=== PATIENT | male | born 1955 | race Caucasian/White ===

== ENCOUNTER 2016-05-05 13:48 | Inpatient (IN) | payer OTHER ==
[~2016-05-05] VITALS: Ht 165.1 cm; Wt 78.9 kg
[2016-05-05] MEDS ORDERED: ONDANSETRON (ODT) 4 MG TAB ODT STA (17:44)
--- NOTE | 2016-05-05 17:47 | ERD ---
ER Documentation Chief Complaint Date/Time DATE: 05/05/16 TIME: 17:45 Chief Complaint ap with vomiting and diarrhea since sunday HPI Pleasant 61-year-old male. Family member interpreting. The patient presents with epigastric and periumbilical abdominal pain, nausea vomiting and diarrhea. Approximately 5-6 days of symptoms. He denies any recent travel, sick contacts, antibiotics. No fevers or chills, no bloody diarrhea. Symptoms are moderate currently. No significant pain currently. ROS All systems reviewed and are negative except as per history of present illness. Medications Home Meds Reported Medications Insulin Glargine* (Lantus*) 100 Unit/Ml Soln, 15 UNIT SC QHS, #1 VIAL 05/05/16 Insulin Lispro (Humalog Kwikpen U-100) 100 Unit/1 Ml Insuln.pen, 7 UNIT SQ TID 05/05/16 Atorvastatin Calcium* (Atorvastatin Calcium*) 20 Mg Tablet, 20 MG PO QHS, #30 TAB 05/05/16 Hydrochlorothiazide* (Hydrochlorothiazide*) 25 Mg Tab, 25 MG PO DAILY, #30 TAB 05/05/16 Lisinopril* (Lisinopril*) 20 Mg Tablet, 20 MG PO DAILY, #30 TAB 05/05/16 Allergies Allergies: Coded Allergies: No Known Allergy (Unverified , 05/05/16) FmHx Family History: diabetes Physical Exam Vitals Vital Signs Date Time Temp Pulse Resp B/P Pulse Ox O2 Delivery O2 Flow Rate FiO2 05/05/16 13:52 98.1 96 20 100/56 99 Physical Exam General: Well developed, well nourished, no acute distress Head: Normocephalic, atraumatic. Eyes: Pupils equally reactive, EOM intact ENT: Moist mucous membranes Neck: Supple, no lymphadenopathy Respiratory: Lungs clear bilaterally, no distress Cardiovascular: RRR, no murmurs, rubs, or gallops Abdominal: Soft,. Billable tenderness without rebound or guarding, no localization of the right or left lower quadrants : Deferred MSK: No edema, no unilateral swelling, 5/5 strength Neurologic: Alert and oriented, moving all extremities, normal speech, no focal weakness, no cerebellar signs Skin: No rash Psych: Normal mood Result Diagram: 05/05/16 1755 05/05/16 1755 Results 24 hrs Laboratory Tests Test 05/05/16 17:55 05/05/16 18:57 Alanine Aminotransferase (ALT/SGPT) 49IU/L Albumin 4.7g/dl Albumin/Globulin Ratio 1.30 Alkaline Phosphatase 164IU/L Anion Gap 30 Aspartate Amino Transf (AST/SGOT) 56IU/L Basophils # 0.010^3/ul Basophils % 0.2% Blood Urea Nitrogen 13mg/dl Calcium Level 10.3mg/dl Carbon Dioxide Level 21mmol/L Chloride Level 86mmol/L Creatinine 0.84mg/dl Direct Bilirubin 0.00mg/dl Eosinophils # 0.010^3/ul Eosinophils % 0.3% Globulin 3.60g/dl Glucose Level 565mg/dl Hematocrit 39.8% Hemoglobin 13.9g/dl Indirect Bilirubin 0.6mg/dl Lipase 2502U/L Lymphocytes # 1.010^3/ul Lymphocytes % 15.3% Mean Corpuscular Hemoglobin 35.0pg Mean Corpuscular Hemoglobin Concent 34.9g/dl Mean Corpuscular Volume 100.3fl Mean Platelet Volume 8.2fl Monocytes # 0.910^3/ul Monocytes % 13.7% Neutrophils # 4.810^3/ul Neutrophils % 70.5% Nucleated Red Blood Cells # 0.010^3/ul Nucleated Red Blood Cells % 0.0/100WBC Platelet Count 94289^3/UL Potassium Level 3.8mmol/L Red Blood Count 3.9710^6/ul Red Cell Distribution Width 12.4% Sodium Level 133mmol/L Total Bilirubin 0.6mg/dl Total Protein 8.3g/dl White Blood Count 6.810^3/ul Bennie Test N/A Arterial Blood Date Drawn 05/05/2016 7:22:33 PM Arterial Blood Gas Puncture Site VENOUS LINE Blood Gas A-a O2 Differential 78.3mmHg Blood Gas Modality ROOM AIR Blood Gas Notified Time 05/05/2016 7:28:26 PM Blood Gas Notified Whom BR Blood Gas Specimen Source Blood venous Blood Gas Temperature 37.0C Carboxyhemoglobin 0.8% FiO2 21.0% Venous Blood Base Excess -4.2mmol/L Venous Blood HCO3 21.5mmol/L Venous Blood Methemoglobin 0.1% Venous Blood Oxygen Saturation 38.2mmHG Venous Blood Oxyhemoglobin 37.9% Venous Blood Total Hemoglobin 14.6g/dl Venous Blood pCO2 (Temp Corrected) 41.5mmHG Venous Blood pH 7.332 Venous Blood pO2 (Temp Corrected) 21.7mmHG Current Medications Medications (Trade) Dose Ordered Sig/Leela Route PRN Reason Start Time Stop Time Status Last Admin Dose Admin Ondansetron HCl (Zofran Odt) 4 mg ONCE STAT ODT 05/05/16 17:44 05/05/16 17:45 DC 05/05/16 18:06 Morphine Sulfate (morphine) 4 mg ONCE STAT IV 05/05/16 19:21 05/05/16 19:22 DC 05/05/16 19:51 Ondansetron HCl (Zofran Inj) 4 mg ONCE STAT IV 05/05/16 19:21 05/05/16 19:22 DC 05/05/16 19:58 Ondansetron HCl (Zofran Inj) 4 mg BRIDGE ORDER PRN IV NAUSEA AND/OR VOMITING 05/05/16 20:00 05/06/16 19:59 Acetaminophen (Tylenol Tab) 650 mg ER BRIDGE PRN PO MILD PAIN/FEVER 05/05/16 20:00 05/06/16 19:59 Insulin Human Lispro (Humalog) 7 unit ONCE STAT SC 05/05/16 19:32 05/05/16 19:34 DC 05/05/16 19:53 Procedures/MDM EKG, MONITORS, & DIAGNOSTIC IMAGING: CT imaging of the abdomen and pelvis IMPRESSION: 1. Minimal peripancreatic inflammation/edema is seen, suspicious for mild acute pancreatitis - correlate with serum enzymes. 2. Severe hepatic steatosis is noted. 3. Coronary arterial and aortoiliac atherosclerotic calcifications are present. 4. Colonic diverticulosis is seen without evidence for diverticulitis. 5. No mass or lymphadenopathy is identified. RPTAT: PP Gallbladder ultrasound IMPRESSION: No cholelithiasis. No sonographic evidence of acute cholecystitis. Hepatomegaly and hepatic steatosis. RPTAT: AA LAB INTERPRETATION: Hyperglycemia, borderline anion gap but normal pH on venous blood gas, elevated lipase consistent with acute pancreatitis MEDICAL DECISION MAKING: The symptoms are most consistent with likely viral process. The patient is a benign abdominal exam other than mild tenderness. Given his age however and persistence of symptoms I do believe CT imaging would be appropriate to rule out acute intra-abdominal process such as colitis, diverticulitis or bowel obstruction. The patient has no evidence of hemorrhagic E. coli or traveler's diarrhea. Antibiotics are likely unnecessary. The patient does appear to be well-hydrated. Oral Zofran will be provided. Or hydration will be given. No indication for IV hydration at this time. ER COURSE: The patient's laboratory testing shows evidence of acute pancreatitis of unclear etiology. The liver function tests showed no evidence of hepatobiliary obstruction. CT imaging and gallbladder ultrasound imaging shows no evidence of cholelithiasis. Consider possible pancreatic mass versus choledocholithiasis. MRCP may be necessary. The patient's pain is well controlled. The patient has hyperglycemia with borderline anion gap. No evidence of elena diabetic ketoacidosis. Patient states compliance with medications. The patient was given 7 units of subcutaneous Humalog. No indication for insulin drip. The patient is stable for medical surgical floor. I kept the patient and/or family informed of laboratory and diagnostic imaging results throughout the emergency room course. DISPOSITION PLAN: Medical surgical admission for management of acute pancreatitis CONSULTATION: Accepting care team and consultations: I discussed the current laboratory data, diagnostic imaging and emergency care provided. Admitting team: Dr. Jean Admitting team indication: Insurance directed Departure Diagnosis: Primary Impression: Abdominal pain Abdominal location: generalized Qualified Code: R10.84 - Generalized abdominal pain Additional Impressions: Nausea and vomiting Vomiting type: unspecified Vomiting Intractability: non-intractable Qualified Code: R11.2 - Non-intractable vomiting with nausea, unspecified vomiting type Acute pancreatitis Pancreatitis type: unspecified pancreatitis type Acute pancreatitis complication: unspecified Qualified Code: K85.90 - Acute pancreatitis, unspecified complication status, unspecified pancreatitis type Hyperglycemia Condition: IRINEO Moralez MD May 05, 2016 17:47
[2016-05-05 18:19] LABS: BASOPHILS % 0.2 % (0.0-2.0); EOSINOPHILS % 0.3 % (0.0-7.0); HEMATOCRIT 39.8 % (42.0-52.0); HEMOGLOBIN 13.9 g/dl (14.0-18.0); LYMPHOCYTES % 15.3 % (15.0-51.0); MEAN CORPUSCULAR HGB CONC 34.9 g/dl (32.0-37.0); MEAN CORPUSCULAR VOLUME 100.3 fl (82.0-101.0); MEAN PLATELET VOLUME 8.2 fl (7.4-10.4); MONOCYTE # 0.9 10^3/ul (0.3-0.9); MONOCYTES % 13.7 % (0.0-11.0); NEUTROPHIL # 4.8 10^3/ul (1.6-7.5); NEUTROPHILS % 70.5 % (39.0-77.0); PLATELET COUNT 167 10^3/UL (140-440); RED BLOOD COUNT 3.97 10^6/ul (4.70-6.10); RED CELL DISTRIBUTION WIDTH 12.4 % (11.5-14.5); UNCORRECTED WBC 6.8 10^3/ul (4.8-10.8); WHITE BLOOD COUNT 6.8 10^3/ul (4.8-10.8)
[2016-05-05 18:32] LABS: ALBUMIN 4.7 g/dl (3.3-4.9); POTASSIUM 3.8 mmol/L (3.5-5.1)
[2016-05-05 18:34] LABS: CREATININE 0.84 mg/dl (0.61-1.24)
[2016-05-05 18:35] LABS: ALBUMIN/GLOBULIN RATIO 1.3; BILIRUBIN,INDIRECT 0.6 mg/dl (0-1.1); BILIRUBIN,TOTAL 0.6 mg/dl (0.2-1.3); CALCIUM 10.3 mg/dl (8.4-10.2); TOTAL PROTEIN 8.3 g/dl (6.1-8.1)
[2016-05-05] MEDS ORDERED: HYD25 PO (18:42)
[2016-05-05] MEDS ORDERED: LISI20TA11 PO (18:42)
[2016-05-05] MEDS ORDERED: ATOR20TA38 PO (18:43)
[2016-05-05] MEDS ORDERED: INSU100I12 SQ (18:44)
[2016-05-05] MEDS ORDERED: LANT3I SC (18:45)
[2016-05-05 19:00] LABS: CONDITION 1
--- NOTE | 2016-05-05 19:09 | RADRPT ---
PROCEDURE: CT Abdomen and Pelvis without contrast. CLINICAL INDICATION: Mid abdominal pain, diarrhea TECHNIQUE: CT of the abdomen and pelvis was performed on a multi-detector scanner without IV contr ast. Coronal and sagittal images were reformatted from the axial data set. One or more of the foll owing dose reduction techniques were used: automated exposure control, adjustment of the mA and/or kV according to patient size, use of iterative reconstruction technique. CTDI = 9.2 mGy. DLP = 507. 92 mGy-cm. COMPARISON: None. FINDINGS: CT abdomen: The lung bases are clear. The heart size is normal, without pericardial effusion. Coronary arteria l calcifications are noted. The liver is fatty infiltrated, without evidence of focal mass. Gallbl adder and biliary tree are unremarkable. Minimal peripancreatic inflammation/edema is seen, suggest clair of mild acute pancreatitis. Spleen, adrenal glands and kidneys are unremarkable except for estefanía gn renal cysts. No urolithiasis or obstructive uropathy is identified. The stomach is grossly unre markable. The aorta is of normal caliber. Aortic vascular calcifications are present. There is no retroperit horton lymphadenopathy. The fifi hepatis region is clear. CT pelvis: No bowel obstruction, free intraperitoneal air or abscess is identified. Colonic diverticulosis is seen without diverticulitis. There is no appendicitis or colitis. Urinary bladder is grossly unrem arkable. No pelvic mass, free fluid or lymphadenopathy is identified. The surrounding osseous structures are remarkable for degenerative spondylosis of the spine. No ost eolytic or osteoblastic lesion is detected. IMPRESSION: 1. Minimal peripancreatic inflammation/edema is seen, suspicious for mild acute pancreatitis - demario elate with serum enzymes. 2. Severe hepatic steatosis is noted. 3. Coronary arterial and aortoiliac atherosclerotic calcifications are present. 4. Colonic diverticulosis is seen without evidence for diverticulitis. 5. No mass or lymphadenopathy is identified. RPTAT: PP .Paresh Pedraza MD, Date Time Electronically viewed and signed by .Paresh Pedraza MD, MD on 05/05/2016 19:09 .R/
[2016-05-05] MEDS ORDERED: ONDANSETRON 4 MG INJ IV STA (19:21)
[2016-05-05] MEDS ORDERED: morphine 4 MG/ML VIAL IV STA (19:21)
[2016-05-05 19:28] LABS: MODE ROOM AIR; MetHgb Venous 0.1 %; Sample Type Blood venous; Venous COHb 0.8 %; Venous Fraction OxyHgb 37.9 %; Venous Total Hemglobin 14.6 g/dl
[2016-05-05] MEDS ORDERED: INSULIN LISPRO 100 UNIT/ML VIAL SC STA (19:32)
--- NOTE | 2016-05-05 19:54 | RADRPT ---
PROCEDURE: US Abdomen (right upper quadrant). CLINICAL INDICATION: Abdominal pain TECHNIQUE: Multiple real-time longitudinal and transverse images of the right upper quadrant of th e abdomen were acquired utilizing a curved array transducer. Images were reviewed on a high-resoluti on PACS workstation. COMPARISON: None FINDINGS: The liver appears echogenic and measures 18 cm in length. No cholelithiasis. The gallbladder wall m easures 1 mm. The common bile duct measures 4 mm. No pericholecystic fluid is seen. No reported son ographic Bates sign. IMPRESSION: No cholelithiasis. No sonographic evidence of acute cholecystitis. Hepatomegaly and hepatic steatosis. RPTAT: AA .Jacky Everett MD, Date Time Electronically viewed and signed by .Jacky Everett MD, MD on 05/05/2016 19:54 .T/
[2016-05-05] MEDS ORDERED: ONDANSETRON 4 MG INJ IV PRN ×2 (20:00)
[2016-05-05] MEDS ORDERED: morphine 2 MG INJ IV PRN (20:00)
[2016-05-05] MEDS ORDERED: ACETAMINOPHEN 325 MG TAB PO PRN ×2 (20:00)
[2016-05-05] MEDS ORDERED: NACL 0.9% 3 ML SYG IV SCH (20:00)
--- NOTE | 2016-05-05 20:08 | HP ---
Date/Time of Note Date/Time of Note DATE: 05/05/16 TIME: 20:01 Assessment/Plan VTE Prophylaxis VTE Prophylaxis Intervention: SCD's Assessment/Plan Assessment/Plan 61 yo male with a past medical history of T2DM, essential hypertension, HLP who presents with five day history of intractable nausea/vomiting. 1. Abd pain - 2/2 to viral gastroenteritis and pancreatitis - will admit the patient to telemetry, IVF, keep him NPO, monitor acute changes 2. Pancreatitis - acute - most likely viral related - monitor lipase trend 3. Type II DM - uncontrolled - continue with lantus and IVF, novolog, check hgba1c 4. Pseudohyponatremia - 2/2 #1 - IVF 5. Essential hypertension - continue with lisinopril 6. Hyperlipidemia - check lipid panel, continue with statin 7. GI ppx - pepcid 8. DVT ppx - heparin answered all of his questions. as per clinical course. this history and physical took greater then 45 minutes to complete HPI/ROS Admit Date/Time Admit Date/Time 05/05/2016, 8:01 pm Hx of Present Illness 61 yo male with a past medical history of T2DM, essential hypertension, HLP who presents with five day history of intractable nausea/vomiting. He states that he has about > 10 episodes of NBNB vomiting, and > 5 of non-bloody diarrhea. He denies any recent travel, eating bad/ foods/meats, who any sick contacts. He has acute abdominal pain, diffuse, crampy in nature, 8/10 in intensity, no alleviating factors. He denies any chest pain, shortness of breath , loss of consciousness, headaches, urinary irregularities, or other constitutional symptoms. ED course: PAULETTE cortez ROS 14 point review of systems completed, please refer to HPI for any positive findings PMH/Family/Social Past Medical History Medical History: diabetes, high cholesterol, hypertension Past Surgical History Past Surgical Hx: appendectomy Family History Significant Family History: diabetes (grandfather) Social History Alcohol Use: occasionally Smoking Status: Never smoker Drug Use: none Exam/Review of Systems Vital Signs Vitals Vital Signs Date Time Temp Pulse Resp B/P Pulse Ox O2 Delivery O2 Flow Rate FiO2 05/05/16 13:52 98.1 96 20 100/56 99 Exam Exam Gen Markus: mild distress 2/2 to abdominal pain, AAOx4 HEENT: NC/AT, PERRLA, EOMI, no pharyngeal erythema, no tonsillar exudates, no lymphadenopathy, no JVD, no carotid bruits NECK: supple, no thyromegaly THORAX: symmetrical, no obvious deformities CV: S1S2, RRR, no M/G/R Lungs: CTAB no W/C/R/R Abd: soft, NT/ND, +hyperactive BS, no rebound, no guarding, neg HSM EXT: no edema, no ecchymosis, no clubbing, FROM Neuro: CN II-XII grossly intact, no focal deficits Psych: good mentation, alert and oriented, good mood and affect Skin: C/D/I Labs Result Diagram: 05/05/16175405/05/161754 Procedures Procedures Gallbladder US IMPRESSION: No cholelithiasis. No sonographic evidence of acute cholecystitis. Hepatomegaly and hepatic steatosis. CT abd/pelvis IMPRESSION: 1. Minimal peripancreatic inflammation/edema is seen, suspicious for mild acute pancreatitis - correlate with serum enzymes. 2. Severe hepatic steatosis is noted. 3. Coronary arterial and aortoiliac atherosclerotic calcifications are present. 4. Colonic diverticulosis is seen without evidence for diverticulitis. 5. No mass or lymphadenopathy is identified. SHANEKA AVENDAÑO MD May 05, 2016 20:08
[2016-05-05] MEDS ORDERED: INSULIN GLARGINE [LANtus] 3 ML PEN SC SCH (21:00)
[2016-05-05 21:26] VITALS: TEMP 97.7
[2016-05-05] MEDS ORDERED: GLUCOSE GEL 15 GRAM TUBE PO PRN ×2 (21:30)
[2016-05-05] MEDS ORDERED: GLUCOSE GEL 15 GRAM TUBE BUCCAL PRN (21:30)
[2016-05-05] MEDS ORDERED: DEXTROSE 50% 50 ML SYRINGE IV PRN ×2 (21:30)
[2016-05-05] MEDS ORDERED: GLUCAGON 1 MG INJ IM PRN (21:30)
[2016-05-05] MEDS ORDERED: DEXTROSE 5%-0.45% NACL 1,000 ML IV SCH (21:45)
[2016-05-05 21:53] VITALS: Ht 165.1 cm; Wt 78.9 kg
[2016-05-05 22:01] VITALS: BP 166/90; PULSE 87; RESP 18
[2016-05-05 22:03] LABS: CHOL/HDL RATIO 4.1 RATIO; MAGNESIUM 2.3 mg/dl (1.7-2.5)
[2016-05-05 22:20] LABS: T3 UPTAKE 42.3 % (23.5-40.5)
[2016-05-05] MEDS: FAMOTIDINE 20 MG INJ IV SCH (22:40)
[2016-05-05] MEDS: ATORVASTATIN 20 MG TAB PO SCH (22:40)
[2016-05-05] MEDS: HEPARIN 5,000 UNIT/0.5 ML SYG SC SCH (22:41)
[2016-05-05] MEDS: INSULIN ASPART [NOVOLOG] 3 ML PEN SC SCH (22:53)
[2016-05-06] MEDS: INSULIN ASPART [NOVOLOG] 3 ML PEN SC SCH ×6 (01:00→20:38)
[2016-05-06 01:05] LABS: ADD UMIC YES; URINE BILIRUBIN (Dip) NEGATIVE (NEGATIVE); URINE BLOOD (Dip) TRACE (NEGATIVE); URINE COLOR LT. YELLOW (YELLOW); URINE GLUCOSE (Dip) >=1000 % (NEGATIVE); URINE KETONES (Dip) 40 (NEGATIVE); URINE LEUKOCYTE ESTERASE (Dip) NEGATIVE (NEGATIVE); URINE NITRITE (Dip) NEGATIVE (NEGATIVE); URINE TOTAL PROTEIN (Dip) TRACE (NEGATIVE); URINE UROBILINOGEN (Dip) 0.2 E.U./dL (0.1-1.0)
[2016-05-06 01:37] LABS: SQUAMOUS EPITHELIAL CELL,UR RARE; URINE RBCS 0-2 /HPF ([, 0])
[2016-05-06 06:55] LABS: BASOPHILS % 0.3 % (0.0-2.0); EOSINOPHILS # 0.1 10^3/ul (0.0-0.5); EOSINOPHILS % 1.8 % (0.0-7.0); HEMATOCRIT 33.3 % (42.0-52.0); LYMPHOCYTES # 0.9 10^3/ul (0.8-2.9); LYMPHOCYTES % 19.2 % (15.0-51.0); MEAN CORPUSCULAR HGB CONC 36.1 g/dl (32.0-37.0); MEAN CORPUSCULAR VOLUME 99.7 fl (82.0-101.0); MEAN PLATELET VOLUME 7.9 fl (7.4-10.4); MONOCYTE # 0.7 10^3/ul (0.3-0.9); MONOCYTES % 15.1 % (0.0-11.0); NEUTROPHIL # 3.1 10^3/ul (1.6-7.5); NEUTROPHILS % 63.6 % (39.0-77.0); PLATELET COUNT 148 10^3/UL (140-440); RED BLOOD COUNT 3.34 10^6/ul (4.70-6.10); RED CELL DISTRIBUTION WIDTH 12.3 % (11.5-14.5); UNCORRECTED WBC 4.9 10^3/ul (4.8-10.8); WHITE BLOOD COUNT 4.9 10^3/ul (4.8-10.8)
[2016-05-06 07:06] LABS: CREATININE 0.62 mg/dl (0.61-1.24)
[2016-05-06 07:08] LABS: POTASSIUM 2.9 mmol/L (3.5-5.1)
[2016-05-06 07:29] LABS: CONDITION 1; LH ANALYZER COMMENTS 1
[2016-05-06 07:35] VITALS: BP 149/82; RESP 18
[2016-05-06] MEDS: FAMOTIDINE 20 MG INJ IV SCH ×2 (08:20→20:33)
[2016-05-06] MEDS: HEPARIN 5,000 UNIT/0.5 ML SYG SC SCH ×2 (08:33→20:37)
[2016-05-06] MEDS ORDERED: POTASSIUM CHLORIDE 250 ML IVPB ONE (09:00)
[2016-05-06] MEDS ORDERED: HYDROCHLOROTHIAZIDE 25 MG TAB PO SCH (09:00)
[2016-05-06] MEDS: 1/2 NS + KCL 20 MEQ 1,000 ML IV SCH ×2 (09:06→19:00)
--- NOTE | 2016-05-06 09:10 | PN ---
Date/Time of Note Date/Time of Note DATE: 05/06/16 TIME: 09:08 Assessment/Plan VTE Prophylaxis VTE Prophylaxis Intervention: SCD's Lines/Catheters IV Catheter Type (from Nrsg): Peripheral IV Assessment/Plan Chief Complaint/Hosp Course Assessment and plan 1. Abd pain - 2/2 to viral gastroenteritis and pancreatitis -continue IVF, keep him NPO, monitor acute changes 2. Pancreatitis - acute - most likely viral related - monitor lipase trend, continue prophylactic antibiotics 3. Type II DM - uncontrolled - continue with lantus and IVF, novolog, hgba1c is 9.8 4. Pseudohyponatremia - 2/2 #1 - IVF 5. Essential hypertension - continue with lisinopril 6. Hyperlipidemia - continue with statin 7. GI ppx - pepcid 8. DVT ppx - heparin We will continue monitor patient closely for recommendation management treatment as clinical course Problems: Subjective 24 Hr Interval Summary Free Text/Dictation Patient denies of any chest pain or shortness of breath Minimal abdominal discomfort N.p.o. Exam/Review of Systems Vital Signs Vitals Vital Signs Date Time Temp Pulse Resp B/P Pulse Ox O2 Delivery O2 Flow Rate FiO2 05/06/16 07:35 98.9 84 18 149/82 98 05/05/16 22:01 Room Air Intake and Output 05/05/16 05/05/16 05/06/16 14:59 22:59 06:59 Intake Total 480 ml Output Total 850 ml Balance -370 ml Exam General: The patient is well-developed, Not in acute distress. HEENT: Atraumatic, normocephalic. The pupils are equal and round . Neck: Supple with full range of motion. Chest: Normal expansion of the thorax during inspiration Lungs: Clear to auscultation bilaterally Heart: Normal S1-S2, Regular rhythm and rate. Abdomen: Soft , nontender, nondistended , bowel sounds are present. Extremities: Normal to inspection, no edema no cyanosis Neurologic: Normal mental status,The patient is awake, alert and oriented . Results Result Diagram: 05/06/16 0539 05/06/16 0539 Results 24 hrs Laboratory Tests Test 05/05/16 17:55 05/05/16 18:00 05/05/16 18:57 05/05/16 19:10 Alanine Aminotransferase (ALT/SGPT) 49 Albumin 4.7 Albumin/Globulin Ratio 1.30 Alkaline Phosphatase 164 H Anion Gap 30 H Aspartate Amino Transf (AST/SGOT) 56 H Basophils # 0.0 Basophils % 0.2 Blood Urea Nitrogen 13 Calcium Level 10.3 H Carbon Dioxide Level 21 Chloride Level 86 L Creatinine 0.84 Direct Bilirubin 0.00 Eosinophils # 0.0 Eosinophils % 0.3 Globulin 3.60 H Glucose Level 565 *H Hematocrit 39.8 L Hemoglobin 13.9 L Indirect Bilirubin 0.6 Lipase 2502 H Lymphocytes # 1.0 Lymphocytes % 15.3 Mean Corpuscular Hemoglobin 35.0 H Mean Corpuscular Hemoglobin Concent 34.9 Mean Corpuscular Volume 100.3 Mean Platelet Volume 8.2 Monocytes # 0.9 Monocytes % 13.7 H Neutrophils # 4.8 Neutrophils % 70.5 Nucleated Red Blood Cells # 0.0 Nucleated Red Blood Cells % 0.0 Platelet Count 167 Potassium Level 3.8 Red Blood Count 3.97 L Red Cell Distribution Width 12.4 Sodium Level 133 L Total Bilirubin 0.6 Total Protein 8.3 H White Blood Count 6.8 Cholesterol Level 310 H Cholesterol/HDL Ratio 4.1 Free Thyroxine Index 2.24 HDL Cholesterol 75 Hemoglobin A1c 9.6 H LDL Cholesterol, Calculated 215 Magnesium Level 2.3 Thyroxine (T4) 5.3 L Triglycerides Level 100 Triiodothyronine (T3) Uptake 42.3 H Bennie Test N/A Arterial Blood Date Drawn 05/05/2016 7:22:33 PM Arterial Blood Gas Puncture Site VENOUS LINE Blood Gas A-a O2 Differential 78.3 Blood Gas Modality ROOM AIR Blood Gas Notified Time 05/05/2016 7:28:26 PM Blood Gas Notified Whom BR Blood Gas Specimen Source Blood venous Blood Gas Temperature 37.0 Carboxyhemoglobin 0.8 FiO2 21.0 Venous Blood Base Excess -4.2 Venous Blood HCO3 21.5 L Venous Blood Methemoglobin 0.1 Venous Blood Oxygen Saturation 38.2 L Venous Blood Oxyhemoglobin 37.9 Venous Blood Total Hemoglobin 14.6 Venous Blood pCO2 (Temp Corrected) 41.5 Venous Blood pH 7.332 Venous Blood pO2 (Temp Corrected) 21.7 L Urine Bilirubin NEGATIVE Urine Clarity CLEAR Urine Color LT. YELLOW Urine Glucose >=1000 Urine Hemoglobin TRACE Urine Ketones 40 Urine Leukocyte Esterase NEGATIVE Urine Microscopic RBC 0-2 Urine Microscopic WBC NONE SEEN Urine Nitrite NEGATIVE Urine Specific [place] <=1.005 L Urine Squamous Epithelial Cells RARE Urine Total Protein TRACE Urine Urobilinogen 0.2 E.U./dL Urine pH 6.0 Test 05/05/16 21:23 05/05/16 22:37 05/06/16 05:17 05/06/16 05:39 Bedside Glucose 336 H 250 H 255 H Anion Gap 19 #H Basophils # 0.0 Basophils % 0.3 Blood Urea Nitrogen 10 Calcium Level 9.0 Carbon Dioxide Level 23 Chloride Level 95 L Creatinine 0.62 Eosinophils # 0.1 Eosinophils % 1.8 Glucose Level 232 #H Hematocrit 33.3 L Hemoglobin 12.0 L Lymphocytes # 0.9 Lymphocytes % 19.2 Mean Corpuscular Hemoglobin 36.0 H Mean Corpuscular Hemoglobin Concent 36.1 Mean Corpuscular Volume 99.7 Mean Platelet Volume 7.9 Monocytes # 0.7 Monocytes % 15.1 H Neutrophils # 3.1 Neutrophils % 63.6 Nucleated Red Blood Cells # 0.0 Nucleated Red Blood Cells % 0.0 Platelet Count 148 Potassium Level 2.9 *L Red Blood Count 3.34 L Red Cell Distribution Width 12.3 Sodium Level 134 L White Blood Count 4.9 # Test 05/06/16 08:10 Bedside Glucose 235 H Medications Medications Current Medications Ondansetron HCl (Zofran Inj) 4 mg Q6H PRN IV NAUSEA AND/OR VOMITING; Start at 20:00 Acetaminophen (Tylenol Tab) 650 mg Q6H PRN PO PAIN LEVEL 1-3 OR FEVER; Start at 20:00 Morphine Sulfate (morphine) 2 mg Q4H PRN IV SEVERE PAIN LEVEL 7-10; Start 05/05 at 20:00 Famotidine (Pepcid Iv) 20 mg Q12 IV Last administered on 05/06/16 08:20; Admin Dose 20 MG; Start 05/05/16 at 21:00 Heparin Sodium (Porcine) (Heparin (5000 Units/0.5 ml)) 5,000 unit Q12 SC Last administered on 05/06/16 08:33; Admin Dose 5,000 UNIT; Start 05/05/16 at 21:00 Insulin Aspart (Novolog Insulin Pen) NOVOLOG *MILD* ALGORI... Q4 SC Last administered on 05/06/16 08:32; Admin Dose 3 UNIT; Start 05/05/16 at 21:00 Atorvastatin Calcium (Lipitor) 20 mg QHS PO Last administered on 05/05/16 22: 40; Admin Dose 20 MG; Start 05/05/16 at 21:00 Lisinopril (Zestril) 20 mg DAILY PO ; Start 05/06/16 at 09:00 Miscellaneous Information 1 ea NOTE XX ; Start 05/05/16 at 21:30 Glucose (Glutose) 15 gm Q15M PRN PO DECREASED GLUCOSE; Start 05/05/16 at 21:30 Glucose (Glutose) 22.5 gm Q15M PRN PO DECREASED GLUCOSE; Start 05/05/16 at 21: 30 Dextrose (D50w Syringe) 25 ml Q15M PRN IV DECREASED GLUCOSE; Start 05/05/16 at 21:30 Dextrose (D50w Syringe) 50 ml Q15M PRN IV DECREASED GLUCOSE; Start 05/05/16 at 21:30 Glucagon (Glucagen) 1 mg Q15M PRN IM DECREASED GLUCOSE; Start 05/05/16 at 21:30 Glucose 15 gm 15 gm Q15M PRN BUCCAL DECREASED GLUCOSE; Start 05/05/16 at 21:30 Potassium Chloride (KCl 40 MEQ/250 ML NS) 250 ml @ 62.5 mls/hr ONCE ONCE IVPB Last administered on 05/06/16 08:41; Admin Dose 62.5 MLS/HR; Start 05/06/16 at 09:00; Stop 05/06/16 at 12:59 Hydrochlorothiazide (Hydrochlorothiazide) 12.5 mg DAILY PO ; Start 05/06/16 at 09:00 Insulin Glargine 10 unit 10 unit QHS SC ; Start 05/06/16 at 21:00 Potassium Chloride/Sodium Chloride (1/2 NS + KCl 20 Meq) 1,000 ml @ 100 mls/hr Q10H IV ; Start 05/06/16 at 09:00 XAVIER AVILA MD May 06, 2016 09:10
[2016-05-06] MEDS: LISINOPRIL 20 MG TAB PO SCH (12:05)
[2016-05-06] MEDS: HYDROCHLOROTHIAZIDE 12.5 MG CAP PO SCH (12:05)
[2016-05-06 19:28] VITALS: BP 139/85; RESP 16
[2016-05-06] MEDS: ATORVASTATIN 20 MG TAB PO SCH (20:33)
[2016-05-06] MEDS ORDERED: INSULIN GLARGINE [LANtus] 3 ML PEN SC SCH (21:00)
[2016-05-07] MEDS: 1/2 NS + KCL 20 MEQ 1,000 ML IV SCH (01:38)
[2016-05-07] MEDS: INSULIN ASPART [NOVOLOG] 3 ML PEN SC SCH ×4 (01:44→12:24)
[2016-05-07 05:40] LABS: BASOPHILS % 0.5 % (0.0-2.0); EOSINOPHILS # 0.1 10^3/ul (0.0-0.5); EOSINOPHILS % 2.2 % (0.0-7.0); HEMOGLOBIN 12.6 g/dl (14.0-18.0); LYMPHOCYTES # 1.4 10^3/ul (0.8-2.9); LYMPHOCYTES % 27.2 % (15.0-51.0); MEAN CORPUSCULAR HEMOGLOBIN 35.1 pg (29.0-33.0); MEAN CORPUSCULAR HGB CONC 35.1 g/dl (32.0-37.0); MEAN CORPUSCULAR VOLUME 100.1 fl (82.0-101.0); MEAN PLATELET VOLUME 7.8 fl (7.4-10.4); MONOCYTE # 0.8 10^3/ul (0.3-0.9); MONOCYTES % 15.3 % (0.0-11.0); NEUTROPHIL # 2.7 10^3/ul (1.6-7.5); NEUTROPHILS % 54.8 % (39.0-77.0); PLATELET COUNT 187 10^3/UL (140-440); RED BLOOD COUNT 3.59 10^6/ul (4.70-6.10); RED CELL DISTRIBUTION WIDTH 12.4 % (11.5-14.5)
[2016-05-07 05:45] LABS: ALBUMIN 3.8 g/dl (3.3-4.9)
[2016-05-07 05:46] LABS: POTASSIUM 3.4 mmol/L (3.5-5.1)
[2016-05-07 05:48] LABS: ALBUMIN/GLOBULIN RATIO 1.18; BILIRUBIN,INDIRECT 0.2 mg/dl (0-1.1); BILIRUBIN,TOTAL 0.2 mg/dl (0.2-1.3); CREATININE 0.62 mg/dl (0.61-1.24)
[2016-05-07 05:49] LABS: CALCIUM 9.1 mg/dl (8.4-10.2); CONDITION 1; LH ANALYZER COMMENTS 1
[2016-05-07 07:34] VITALS: BP 131/72; RESP 22
[2016-05-07] MEDS ORDERED: POTASSIUM CHLORIDE (SR) 20 MEQ TAB PO STA (08:04)
--- NOTE | 2016-05-07 08:04 | PN ---
Date/Time of Note Date/Time of Note DATE: 05/07/16 TIME: 08:02 Assessment/Plan VTE Prophylaxis VTE Prophylaxis Intervention: SCD's Lines/Catheters IV Catheter Type (from [facility] Peripheral IV Urinary Cath still in place: No Assessment/Plan Chief Complaint/Hosp Course Assessment and plan 1. Abd pain - 2/2 to viral gastroenteritis and pancreatitis -continue IVF, start full liquid diet if lipase is less than 500, monitor acute changes 2. Pancreatitis - acute - most likely viral related - monitor lipase trend, continue prophylactic antibiotics 3. Type II DM - uncontrolled - continue with lantus and IVF, novolog, [id number] is 9.8 4. Pseudohyponatremia - 2/2 #1 - IVF 5. Essential hypertension - continue with lisinopril 6. Hyperlipidemia - continue with statin 7. GI ppx - pepcid 8. DVT ppx - heparin We will continue monitor patient closely for recommendation management treatment as clinical course Problems: Subjective 24 Hr Interval Summary Free Text/Dictation Denies of any chest pain or shortness of breath Denies of any abdominal pain No nausea vomiting and diarrhea Exam/Review of Systems Vital Signs Vitals Vital Signs Date Time Temp Pulse Resp B/P Pulse Ox O2 Delivery O2 Flow Rate FiO2 05/07/16 07:34 98.7 95 22 131/72 98 05/05/16 22:01 Room Air Intake and Output 05/06/16 05/06/16 05/07/16 15:00 23:00 07:00 Intake Total 150 ml 400 ml 1100 ml Balance 150 ml 400 ml 1100 ml Exam General: The patient is well-developed, Not in acute distress. HEENT: Atraumatic, normocephalic. The pupils are equal and round . Neck: Supple with full range of motion. Chest: Normal expansion of the thorax during inspiration Lungs: Clear to auscultation bilaterally Heart: Normal S1-S2, Regular rhythm and rate. Abdomen: Soft , nontender, nondistended , bowel sounds are present. Extremities: Normal to inspection, no edema no cyanosis Neurologic: Normal mental status,The patient is awake, alert and oriented . Results Result Diagram: 05/07/16 0455 05/07/16 0455 Results 24 hrs Laboratory Tests Test 05/06/16 08:10 05/06/16 11:53 05/06/16 17:00 05/06/16 20:32 Bedside Glucose 235 H 193 200 193 Test 05/07/16 01:38 05/07/16 04:55 05/07/16 05:36 Bedside Glucose 182 164 Alanine Aminotransferase (ALT/SGPT) 41 Albumin 3.8 Albumin/Globulin Ratio 1.18 Alkaline Phosphatase 100 Anion Gap 20 H Aspartate Amino Transf (AST/SGOT) 43 Basophils # 0.0 Basophils % 0.5 Blood Urea Nitrogen 10 Calcium Level 9.1 Carbon Dioxide Level 23 Chloride Level 95 L Creatinine 0.62 Direct Bilirubin 0.00 Eosinophils # 0.1 Eosinophils % 2.2 Globulin 3.20 Glucose Level 144 # Hematocrit 36.0 L Hemoglobin 12.6 L Indirect Bilirubin 0.2 Lipase 47 Lymphocytes # 1.4 Lymphocytes % 27.2 Mean Corpuscular Hemoglobin 35.1 H Mean Corpuscular Hemoglobin Concent 35.1 Mean Corpuscular Volume 100.1 Mean Platelet Volume 7.8 Monocytes # 0.8 Monocytes % 15.3 H Neutrophils # 2.7 Neutrophils % 54.8 Nucleated Red Blood Cells # 0.0 Nucleated Red Blood Cells % 0.0 Platelet Count 187 # Potassium Level 3.4 L Red Blood Count 3.59 L Red Cell Distribution Width 12.4 Sodium Level 135 Thyroid Stimulating Hormone (TSH) 0.865 Total Bilirubin 0.2 Total Protein 7.0 # White Blood Count 5.0 Medications Medications Current Medications Ondansetron HCl (Zofran Inj) 4 mg Q6H PRN IV NAUSEA AND/OR VOMITING; Start at 20:00 Acetaminophen (Tylenol Tab) 650 mg Q6H PRN PO PAIN LEVEL 1-3 OR FEVER; Start at 20:00 Morphine Sulfate (morphine) 2 mg Q4H PRN IV SEVERE PAIN LEVEL 7-10; Start 05/05 at 20:00 Famotidine (Pepcid Iv) 20 mg Q12 IV Last administered on 05/06/16 20:33; Admin Dose 20 MG; Start 05/05/16 at 21:00 Heparin Sodium (Porcine) (Heparin (5000 Units/0.5 ml)) 5,000 unit Q12 SC Last administered on 05/06/16 20:37; Admin Dose 5,000 UNIT; Start 05/05/16 at 21:00 Insulin Aspart (Novolog Insulin Pen) NOVOLOG *MILD* ALGORI... Q4 SC Last administered on 05/07/16 05:39; Admin Dose 1 UNIT; Start 05/05/16 at 21:00 Atorvastatin Calcium (Lipitor) 20 mg QHS PO Last administered on 05/06/16 20: 33; Admin Dose 20 MG; Start 05/05/16 at 21:00 Lisinopril (Zestril) 20 mg DAILY PO Last administered on 05/06/16 12:05; Admin Dose 20 MG; Start 05/06/16 at 09:00 Miscellaneous Information 1 ea NOTE XX ; Start 05/05/16 at 21:30 Glucose (Glutose) 15 gm Q15M PRN PO DECREASED GLUCOSE; Start 05/05/16 at 21:30 Glucose (Glutose) 22.5 gm Q15M PRN PO DECREASED GLUCOSE; Start 05/05/16 at 21: 30 Dextrose (D50w Syringe) 25 ml Q15M PRN IV DECREASED GLUCOSE; Start 05/05/16 at 21:30 Dextrose (D50w Syringe) 50 ml Q15M PRN IV DECREASED GLUCOSE; Start 05/05/16 at 21:30 Glucagon (Glucagen) 1 mg Q15M PRN IM DECREASED GLUCOSE; Start 05/05/16 at 21:30 Glucose (Glutose) 15 gm Q15M PRN BUCCAL DECREASED GLUCOSE; Start 05/05/16 at 21 :30 Hydrochlorothiazide (Hydrochlorothiazide) 12.5 mg DAILY PO Last administered on 05/06/16 12:05; Admin Dose 12.5 MG; Start 05/06/16 at 09:00 Insulin Glargine 10 unit 10 unit QHS SC Last administered on 05/06/16 20:39; Admin Dose 10 UNIT; Start 05/06/16 at 21:00 Potassium Chloride/Sodium Chloride (1/2 NS + KCl 20 Meq) 1,000 ml @ 100 mls/hr Q10H IV Last administered on 05/07/16 01:38; Admin Dose 100 MLS/HR; Start at 09:00 XAVIER AVILA MD May 07, 2016 08:04
[2016-05-07] MEDS: FAMOTIDINE 20 MG INJ IV SCH (09:04)
[2016-05-07] MEDS: LISINOPRIL 20 MG TAB PO SCH (09:06)
[2016-05-07] MEDS: HYDROCHLOROTHIAZIDE 12.5 MG CAP PO SCH (09:06)
[2016-05-07] MEDS: HEPARIN 5,000 UNIT/0.5 ML SYG SC SCH (09:12)
--- NOTE | 2016-05-07 09:45 | PDOCDIS ---
Discharge Instructions CONDITION Patient Condition: Good HOME CARE INSTRUCTIONS: Special Diet: Full liquid and advance to low fat ACTIVITY: Activity Restrictions: No Restrictions FOLLOW UP/APPOINTMENTS Appointments follow up with PCP in one week SCHOOL/WORK RELEASE May return to School/Work with: No Restrictions XAVIER AVILA MD May 07, 2016 09:45
[2016-05-07] MEDS ORDERED: ONDA4TAB8 PO (09:47)
== END 2016-05-07 14:00 | disposition home or self-care (01) | DRG 439 ==
LOC: E/R 13:48 → MS2 19:32
PROVIDERS: ADMIT Student in an Organized Health Care Education/Training Program; ATTEND Student in an Organized Health Care Education/Training Program
DX: K85.90 Acute pancreatitis without necrosis or infection, unspecified (principal); E87.1 Hypo-osmolality and hyponatremia; I10 Essential (primary) hypertension; A08.4 Viral intestinal infection, unspecified; E11.9 Type 2 diabetes mellitus without complications; E78.5 Hyperlipidemia, unspecified
CPT/HCPCS: 36415; 74176; 76705; 80048; 80053; 80061; 81001; 81003; 82803; 82962; 83036; 83690; 83735; 84436; 84443; 84479; 85025; 87075; 96372; 96374; 96375; J1815; J2270; J2405; J3480; J7042